=== PATIENT | male | born 1955 | race Two or more races ===

== ENCOUNTER 2025-01-23 04:19 | Emergency (ER) | payer MEDICARE, OTHER ==
[~2025-01-23] VITALS: Ht 175.3 cm; Wt 75.3 kg
[2025-01-23] MEDS ORDERED: LIDOCAINE 2% JEL UROJET 10 ML MM ONE (04:29)
[2025-01-23] MEDS: LIDOCAINE 2% JEL UROJET 10 ML MM ONE (04:35)
[2025-01-23 04:44] VITALS: BP 154/86; TEMP 97.5; O2SAT 95
[2025-01-23 04:50] LABS: APPEARANCE,URINE CLEAR (CLEAR); BILIRUBIN,URINE NEGATIVE (NEGATIVE); BLOOD, URINE 3+ Ery/uL (NEGATIVE); COLOR,URINE YELLOW (YELLOW); KETONES,URINE NEGATIVE (NEGATIVE); LEUKOCYTE ESTERASE ,URINE NEGATIVE (NEGATIVE); NITRITE, URINE NEGATIVE (NEGATIVE); PROTEIN,URINE NEGATIVE (NEGATIVE); UGLUCOSE NEGATIVE (NEGATIVE); UROBILINOGEN,URINE 0.2 EU/dL (0.2)
[2025-01-23 05:03] LABS: ADD URINE CULTURE NO; BACTERIA,URINE Few /HPF (None Seen); SQUAMOUS EPITHELIAL CELL,UR Few /HPF (None Seen)
== END 2025-01-23 05:55 | disposition home or self-care (01) ==
LOC: ER 04:22
DX: R33.8 Other retention of urine (principal); F17.200 Nicotine dependence, unspecified, uncomplicated
CPT/HCPCS: 99284; 51702; 81001; J3490